=== PATIENT | female | born 1985 | race Caucasian/White ===

== ENCOUNTER → 2017-01-11 | Outpatient (REF) ==
[~2017-01-11] MED LIST: AMBIEN 5MG TABLE5 MG PO; DEPAKOTE500 MG PO
== END ==
LOC: ZLAB.WCH 14:50
DX: Z01.89 Encounter for other specified special examinations (principal)

== ENCOUNTER 2017-04-22 08:06 | Outpatient (CLI) | payer OTHER ==
[~2017-04-22] VITALS: Ht 160 cm; Wt 59.1 kg
[2017-04-22] VITALS (8 sets, daily range): BP systolic 98–108; BP diastolic 55–69; PULSE 62–87
[2017-04-22 10:09] LABS: CEREBROSPINAL TUBE #4; CSF APPEARANCE CLEAR; CSF COLOR COLORLESS
[2017-04-25 13:27] LABS: CSF IGG/ALBUMIN 0.08 (<=0.21)
[2017-04-25 13:35] LABS: CSF-IGG INDEX 0.47 (<=0.85); IGG/ALBUMIN SERUM 0.17 (<=0.40)
== END 2017-04-22 11:21 | disposition home or self-care (01) ==
LOC: COL.RAD 08:06
PROVIDERS: Psychiatry & Neurology Neurology
DX: G37.9 Demyelinating disease of central nervous system, unspecified (principal); R20.0 Anesthesia of skin

== ENCOUNTER → 2020-09-01 | Outpatient (CLI) | payer BC | LOC: MC.RAD 09:21 | DX: N60.02 Solitary cyst of left breast (principal) ==

== ENCOUNTER → 2022-11-18 | Outpatient (CLI) | payer BC | LOC: MC.RAD 11:00 | DX: N60.02 Solitary cyst of left breast (principal); N60.01 Solitary cyst of right breast ==